=== PATIENT | female | born 1965 | race Caucasian/White ===

== ENCOUNTER 2021-01-19 11:08 | Emergency (ER) | payer BC ==
[2021-01-19 11:52] VITALS: BP 177/84
[2021-01-19] MEDS ORDERED: CASIRIVIMAB (REGN10933) (EUA) 600 MG, IMDEVIMAB (REGN10987) (EUA) 600 MG in SODIUM CHLO... IVPB ONE (14:00)
[2021-01-19] MEDS ORDERED: SODIUM CHLORIDE 0.9% 50 ML IVPB ONE (14:00)
[2021-01-19] MEDS ORDERED: ACETAMINOPHEN TAB 500 MG TAB PO STA (15:30)
--- NOTE | 2021-01-19 15:31 | ED ---
General Adult HPI - General Chief complaint: Upper Respiratory Infection Stated complaint: covid+ Time Seen by Provider: 01/19/21 12:54 Source: patient, RN notes reviewed, old records reviewed Mode of arrival: ambulatory Limitations: no limitations - History of Present Illness Initial comments: Patient is a 55-year-old female with past medical history remarkable for anemia presents emergency Department with a home Covid 19 positive test. Patient is complaining of upper respiratory symptoms. She endorses a mild fever. Denies any shortness of breath, chest pain, abdominal pain, nausea, vomiting, diarrhea. Patient does have sick contacts, her and daughter who both have COVID- 19. Patient is covid 19 vaccinated. She has no other acute complaints at this time. She is seeking monoclonal antibody therapy.She was evaluated when she was placed in a room. - Related Data Home Medications Medication Instructions Recorded Confirmed Ascorbic Acid [Vitamin C] 1,000 mg PO HS 01/19/21 01/19/21 Calcium Carbonate [Calcium] 600 mg PO HS 01/19/21 01/19/21 Cholecalciferol [Vitamin D3 (25 25 mcg PO HS 01/19/21 01/19/21 Mcg = 1000 Iu)] Docusate [Colace] 100 mg PO HS 01/19/21 01/19/21 Ferrous Sulfate [Feosol] 325 mg PO HS 01/19/21 01/19/21 Multivitamins, Thera [Multivitamin 1 tab PO HS 01/19/21 01/19/21 (formulary)] Omeprazole Magnesium [PriLOSEC OTC] 20 mg PO DAILY 01/19/21 01/19/21 Zinc 50 mg PO HS 01/19/21 01/19/21 Allergies Allergy/AdvReac Type Severity Reaction Status Date / Time No Known Allergies Allergy Verified 01/19/21 13:53 Review of Systems ROS Statement: Those systems with pertinent positive or pertinent negative responses have been documented in the HPI. Review of Systems: CONST: Low-grade fever. EYES: Denies blurry vision ENT: Endorses nasal congestion, cough C/V: Denies Chest pain RESP: Denies shortness of breath GI: Denies abdominal pain : Denies dysuria SKIN: Denies rash. MSK: Denies joint pain. NEURO: Denies headache ROS Other: All systems not noted in ROS Statement are negative. Past Medical History Past Medical History: No Reported History History of Any Multi-Drug Resistant Organisms: None Reported Past Surgical History: Joint Replacement Past Psychological History: No Psychological Hx Reported Smoking Status: Never smoker Past Alcohol Use History: None Reported Past Drug Use History: None Reported General Exam - General Exam Comments Initial Comments: General: Appears in no acute distress. HEAD: Normal with no signs of head trauma. EYES: EOMI ENT: Rhinorrhea RESPIRATORY: Clear breath sounds bilaterally. No wheezes, rales, or rhonchi. C/V: Regular rate and rhythm. S1 and S2 auscultated, no edema, peripheral pulses 2+ and intact throughout ABD: Abdomen is non-tender, nondistended. EXT: Normal range of motion, no obvious deformity SKIN: No rashes or lesions observed on exposed skin. NEURO: Alert and oriented 4. Limitations: no limitations Course Vital Signs 01/19/21 01/19/21 11:48 15:59 Temperature 100.2 F H 99.5 F Pulse Rate 100 71 Respiratory 20 18 Rate Blood Pressure 177/84 O2 Sat by Pulse 98 99 Oximetry Medical Decision Making - Medical Decision Making Based on the patient's presentation and physical exam, patient is COVID-19 infection. Swab was repeated here and was positive. I do not believe that she presently laboratory studies or imaging at this time. Patient is not hypoxic on room air. She would like monoclonal antibody therapy. She does meet requirements. Patient was administered monoclonal antibiotic therapy. She was monitored for signs of ALLERGIC reaction afterwards, which were none. Believe it is safer to be discharged home at this time. I instructed the patient to follow up with their PCP in the next 3 days. I explained that the patient should return to the emergency department if they experience any worsening symptoms. Strict return precautions were discussed with the patient. The patient expressed understanding of these instructions. I answered all questions that the patient had. The patient was discharged home in fair condition with their prescriptions and follow up information. - Lab Data Lab Results 01/19/21 Range/Units 12:03 Coronavirus (PCR) Detected A (Not Detectd) Disposition Clinical Impression: COVID-19 virus infection Disposition: HOME SELF-CARE Condition: Fair Instructions (If sedation given, give patient instructions): Coronavirus Disease 2019 (COVID-19) Is patient prescribed a controlled substance at d/c from ED?: No Referrals: Jasmina Gruber MD [Primary Care Provider] - 1-2 days
[2021-01-19 16:00] VITALS: PULSE 71; RESP 18; TEMP 99.5
== END 2021-01-19 16:29 | disposition home or self-care (01) ==
LOC: EC 11:08
DX: U07.1 COVID-19 (principal)
CPT/HCPCS: 87635; 99283; 96374; Q0243

== ENCOUNTER → 2021-03-14 | Outpatient (CLI) | payer BC ==
--- NOTE | 2021-03-14 12:30 | BD ---
EXAMINATION TYPE: Axial Bone Density DATE OF EXAM: 03/14/2021 COMPARISON: NONE CLINICAL HISTORY: 55 YR OLD FEMALE.....ICD-10 CODE: Z78.0 MENOPAUSAL Height: 67.6 Weight: 135 FRAX RISK QUESTIONS: History of Fracture in Adulthood: YES Secondary Osteoporosis: YES 3. Menopause before 45: YES Current Tobacco Use: QUIT 15 YRS AGO RISK FACTORS HISTORY OF: FX RT FOOT, 53 YR OLD, RT HIP FX OCT 2020 AT 54 YRS OLD, THR RT HIP History of Wrist Fracture: LT WRIST CHILD Surgery to RT HIP AT 54 YRS OLD, FX OF RT HIP, THR Active: YES Diet low in dairy products/other sources of calcium: YES Postmenopausal woman: YES, AT AGE 44 YRS OLD Hyperparathyroidism: NO Adrenal Insufficiency: NO MEDICATIONS: Additional Medications: CALCIUM WITH D, REFLUX MEDS, VIT D Additional History: MULTIPLE FXS, REFLUX EXAM MEASUREMENTS: Bone mineral densitometry was performed using the [employer] Digital System. Bone mineral density as measured about the Lumbar spine is: ----- L1-L4(G/cm2): 1.030 T Score Values are as follows: ----- L1: -1.8 ----- L2: -1.5 ----- L3: -1.1 ----- L4: -0.9 ----- L1-L4: -1.2 Bone mineral density FIRST DEXA AT [facility] Bone mineral density about the L hip (g/cm2): 0.724 T Score values are as follows: -----L Neck: -2.6 -----L Total: -2.3 Bone mineral density FIRST DEXA STUDY AT [facility] FRAX%s: THERE IS A 16.8% CHANCE FOR A MAJOR OSTEOPOROTIC FX AND A 4.1% FOR HIP......PROBABILITY FOR FX IN 10 YRS TIME IMPRESSION: Osteopenia (T Score between -2.5 and -1). There is slightly increased risk of fracture and the patient may be considered for treatment. Re-Screen 2-5 years. NOTE: T-SCORE=SD OF THE YOUNG ADULT MEAN.
--- NOTE | 2021-03-16 10:03 | MM ---
Reason for exam: screening (asymptomatic). History: Patient is postmenopausal. Physical Findings: A clinical breast exam by your physician is recommended on an annual basis and results should be correlated with mammographic findings. MG Screening Mammo w CAD Bilateral CC and MLO view(s) were taken. The breast tissue is heterogeneously dense. This may lower the sensitivity of mammography. No significant changes when compared with prior studies. ASSESSMENT: Benign, BI-RAD 2 RECOMMENDATION: Routine screening mammogram of both breasts in 1 year.
== END | disposition home or self-care (01) ==
LOC: RADMAMWWP 08:04
PROVIDERS: ATTEND Nurse Practitioner Family
DX: Z12.31 Encounter for screening mammogram for malignant neoplasm of breast (principal); M85.80 Other specified disorders of bone density and structure, unspecified site; Z78.0 Asymptomatic menopausal state
CPT/HCPCS: 77067; 77080

== ENCOUNTER → 2022-07-12 | Outpatient (CLI) | payer BC ==
--- NOTE | 2022-07-15 07:54 | MM ---
Reason for Exam: Screening (asymptomatic). Last mammogram was performed 1 year(s) and 4 month(s) ago. Patient History: Menarche at age 12. First Full-Term at age 29. Postmenopausal. Maternal cousin had breast cancer, age 40. Paternal cousin had breast cancer, age 45. Risk Values: Maria D 5 year model risk: 1.4%. NCI Lifetime model risk: 8.7%. Prior Study Comparison: 03/14/2021 Bilateral Screening Mammogram, [facility]. Tissue Density: The breast tissue is heterogeneously dense. This may lower the sensitivity of mammography. Findings: Analyzed By CAD. There is no suspicious group of microcalcifications or new suspicious mass in either breast. Overall Assessment: Negative, BI-RAD 1 Management: Screening Mammogram of both breasts in 1 year. . Patient should continue monthly self-breast exams. A clinical breast exam by your physician is recommended on an annual basis. This exam should not preclude additional follow-up of suspicious palpable abnormalities. Note on Maria D scores and lifetime risk: 1. A Maria D score greater than 3% is considered moderate risk. If this is the case, consider specialist referral to assess eligibility for a risk reducing agent. 2. If overall lifetime risk for the development of breast cancer is 20% or higher, the patient may qualify for future screening with alternating mammogram and breast MRI. Electronically signed and approved by: Mina Go M.D. Radiologis
== END | disposition home or self-care (01) ==
LOC: RADMAMWWP 06:48
PROVIDERS: ATTEND Family Medicine
DX: Z12.31 Encounter for screening mammogram for malignant neoplasm of breast (principal); Z78.0 Asymptomatic menopausal state; Z80.3 Family history of malignant neoplasm of breast
CPT/HCPCS: 77067

== ENCOUNTER → 2024-01-23 | Outpatient (CLI) | payer OTHER ==
--- NOTE | 2024-01-23 14:41 | MR ---
EXAMINATION TYPE: MR knee RT wo con DATE OF EXAM: 01/23/2024 1:57 PM COMPARISON: Radiograph 01/16/2024 CLINICAL INDICATION: Female, 58 years old with history of M25.561 PAIN IN RIGHT KNEE, Rt knee pain TECHNIQUE: Multiplanar, multisequence imaging of the right knee is performed without IV contrast. FINDINGS: ACL, PCL, and MCL are intact. Heterogeneous signal the popliteus tendon at its origin. Otherwise, LCL complex is intact. There is comminuted subarticular fracture posterior aspect of the lateral tibial plateau. No signific ant articular surface step-off or articular surface depression. Extensive reactive marrow edema. No d iscrete chondral injury within the lateral compartment. The lateral meniscus appears intact. There is a large oblique tear extending through the posterior horn and body of the medial meniscus. O verall medial compartment articular cartilage volume is maintained. Patellofemoral compartment articular cartilage is preserved. Extensor mechanism is intact. There is some edema within the suprapatellar fat pad noted. Small knee joint effusion. Normal popliteal artery anatomy. Mild generalized muscle atrophy. Otherwise, no suspicious bone marro w replacement. IMPRESSION: 1. Mildly comminuted, nondisplaced subchondral fracture posterior aspect of the lateral tibial platea u. No articular surface depression or articular surface step-off. Extensive reactive marrow edema. 2. Oblique tear extending to the posterior horn and body of the medial meniscus. 3. Edema within the suprapatellar fat pad is nonspecific but may be seen in setting of fat pad imping ement syndrome. Clinically correlate. 4. 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 [facility], , 01/23/2024 2:38 PM
== END | disposition home or self-care (01) ==
LOC: RADMRIMAIN 13:27
PROVIDERS: ATTEND Orthopaedic Surgery
DX: S83.241A Other tear of medial meniscus, current injury, right knee, initial encounter (principal); R60.0 Localized edema

== ENCOUNTER → 2024-02-24 | Outpatient (CLI) | payer OTHER ==
[2024-02-24 10:15] LABS: HCT 42.4 % (37.2-46.3); HGB 13.5 g/dL (12.0-15.0); MCH 27.8 pg (27.0-32.0); MCHC 31.8 g/dL (32.0-37.0); MCV 87.2 FL (80.0-97.0); Mean Platelet Volume 10.2 FL (9.5-12.2); NRBC Per 100 WBC 0 X 10*3/uL (0.00-0.01); Platelet Count 244 X 10*3/uL (140-440); RBC 4.86 X 10*6/uL (4.10-5.20); RDW 13.1 % (11.5-14.5); WBC 5.45 X 10*3/uL (4.50-10.00)
[2024-02-24 15:15] LABS: Anion Gap 10.3 mmol/L (4.00-12.00); Carbon Dioxide 24.7 mmol/L (21.6-31.8); Potassium 4.4 mmol/L (3.5-5.5)
== END | disposition home or self-care (01) ==
LOC: LABPAT 07:57
PROVIDERS: ATTEND Orthopaedic Surgery
DX: Z01.818 Encounter for other preprocedural examination (principal); M23.91 Unspecified internal derangement of right knee
CPT/HCPCS: 80051; 85027; 93005

== ENCOUNTER 2024-03-25 12:42 | Day surgery (SDC) | payer OTHER ==
--- NOTE | 2024-03-25 08:12 | HP ---
HISTORY AND PHYSICAL DATE OF SURGERY: 03/25/2024. HISTORY OF PRESENT ILLNESS: Debbie Isidro is a patient who was seen with progressive right knee pain. We discussed options regarding treatment. She elected to proceed with right knee arthroscopy. Consents obtained. PAST MEDICAL HISTORY: Gastroesophageal reflux disease. SURGICAL HISTORY: Total hip arthroplasty. DAILY MEDICATIONS: Prilosec. ALLERGIES: None. SOCIAL HISTORY: She denies tobacco use. PHYSICAL EVALUATION OF THE RIGHT KNEE: Range of motion is negative 2 to 110 degrees. Tenderness, medial joint line. Positive medial Padma's. Positive lateral Padma's. Ligaments stable. Hip rotation without pain. Distal neurovascular exam is intact. IMAGING DATA: An MRI of the right knee revealed a meniscal tear. IMPRESSION: Internal derangement of right knee with medial meniscal tear. PLAN: Right knee arthroscopy with partial medial meniscectomy and debridement. MMODL / IJN: [id number] /
[~2024-03-25 12:42] MED LIST: HYDROmorphone 0.5 MG/0.5 ML SYRINGE IVP PRN; LIDOCAINE 1% (10MG/ML) FOR IV START INTRADERMA PRN; droPERidol 5 MG/2 ML VIAL IVP ONE
[2024-03-25] MEDS: IV FLUID CONTINUATION 1,000 ML IV ONE (13:00)
[2024-03-25] MEDS: DEXAMETHASONE SOD PHOSPHATE 4 MG/ML 1 ML VIAL IV ONE (13:20)
[2024-03-25] MEDS: ONDANSETRON 4 MG/2 ML VIAL IVP ONE (13:20)
[2024-03-25] MEDS: LACTATED RINGERS 1,000 ML IV SCH (13:20)
[2024-03-25] MEDS: MIDAZOLAM 2 MG/2 ML VIAL IV ONE (13:21)
[2024-03-25] MEDS ORDERED: SUCCINYLCHOLINE CHLORIDE 200 MG/10 ML VIAL IV ONE (14:28)
[2024-03-25] MEDS ORDERED: LIDOCAINE 1% INJ 10MG/ML (20 ML MDV) ONE (14:28)
[2024-03-25] MEDS ORDERED: MIDAZOLAM 2 MG/2 ML VIAL ONE (14:28)
[2024-03-25] MEDS ORDERED: PROPOFOL 10 MG/ML 20 ML VIAL IV ONE (14:28)
[2024-03-25] MEDS ORDERED: fentaNYL (PF) 50 MCG/ML 2 ML AMP ONE (14:28)
[2024-03-25] MEDS: BUPIVACAINE (PF) 0.25% 30 ML VIAL SQ ONE (14:30)
--- NOTE | 2024-03-25 15:32 | P.OP ---
Date of Procedure: 03/25/24 Preoperative Diagnosis: Internal derangement right knee Postoperative Diagnosis: 1. Tear medial and lateral meniscus right knee 2. Reactive synovitis medial, lateral and suprapatellar compartments right knee Procedure(s) Performed: 1. Arthroscopic partial medial and lateral meniscectomy right knee 2. Arthroscopic partial synovectomy medial, lateral and suprapatellar compartments right knee Anesthesia: GETA, local Surgeon: Juanpablo Rivera Estimated Blood Loss (ml): 5 Pathology: none sent Condition: stable Disposition: PACU Indications for Procedure: 59-year-old patient seen with progressive right knee pain. After having treatment options discussed, she elected to proceed with arthroscopy. Operative Findings: See description of procedure Description of Procedure: Patient was taken to the operative suite. Patient underwent a general anesthetic by the department of anesthesia. Patient was given preoperative antibiotics. The right lower extremity was placed in a well-padded arthroscopic leg crane. The right leg was prepped and draped in the normal sterile orthopedic fashion. A lateral parapatellar and suprapatellar incision was made. Trochars were inserted. Arthroscopy was initiated. Suprapatellar pouch revealed diffuse thick reactive synovitis. The patellofemoral joint appeared to articulate congruently. There was grade I chondromalacia of the patella without tears. The scope was guided into the medial gutter. No loose bodies or plica were identified. The scope was then guided into the medial compartment. A medial parapatellar incision was made. Trocar inserted followed by probe. T here was a complex tear involving the posterior horn of the medial meniscus. There were grade I chondromalacia changes medial compartment without tears. There was thick reactive synovitis anteriorly. I performed a partial medial meniscectomy getting down to stable meniscal tissue. I performed a partial synovectomy decompressing the reactive synovitis. The residual meniscus was stable. There was good decompression of the synovitis. Scope and probe were then guided into the intercondylar notch. Cruciates were identified, probed and found to be stable. The scope and probe were then guided into lateral compartment. There was a radial tear mid body lateral meniscus. There was thick reactive synovitis anteriorly. There was no significant chondromalacia present. I performed a partial lateral meniscectomy getting down to stable meniscal tissue. I performed a partial synovectomy decompressing the reactive synovitis. The residual meniscus was stable. There was good decompression of the synovitis. The scope was in guided back into the suprapatellar compartment. I introduced a motorized shaver into the suprapatellar compartment. I performed a partial synovectomy. The shaver was removed. There was good decompression of the synovitis. I took 1 more look around the entire knee, no residual debris. Instruments were now removed from the joint. The joint was infiltrated with .25% Marcaine. Steri-Strips were applied to the portal sites. Sterile dressings were applied. The patient was placed into a HIMA hose. No tourniquet was utilized. The patient was awakened, transferred to a bed and taken to recovery stable satisfactory condition.
[2024-03-25 15:40] VITALS: TEMP 96.9
[2024-03-25 16:48] VITALS: RESP 18
[2024-03-25] MEDS: HYDROcodone/APAP 5-325MG 1 EACH TAB PO STA (16:50)
[2024-03-25 17:11] VITALS: BP 148/90; PULSE 70
== END 2024-03-25 17:42 | disposition home or self-care (01) ==
LOC: OR 12:42
PROVIDERS: ATTEND Orthopaedic Surgery
DX: M23.91 Unspecified internal derangement of right knee (principal); S83.241A Other tear of medial meniscus, current injury, right knee, initial encounter; S83.281A Other tear of lateral meniscus, current injury, right knee, initial encounter; M65.961 Unspecified synovitis and tenosynovitis, right lower leg
CPT/HCPCS: 29880; J2250; J1100; J0690; J2405; J0665